=== PATIENT | female | born 1960 | race Caucasian/White ===

== ENCOUNTER 2016-06-12 14:18 | Inpatient (IN) | payer MEDICARE, OTHER ==
--- NOTE | ~2016-06-12 | CN ---
Consultation Report [facility] [address] [place]. [address] NAME: GARCIA PATRICK : 64 STATUS : ADM IN PAT#: [id number] AGE: 56 ADM/REG DATE : 06/13/16 MR#: [id number] REPORT SERV DATE: 06/19/16 DICTATED BY: LAI HILL DATE: 06/19/16 REPORT STATUS : Draft TRANSCRIBED BY: MODL DATE: 06/19/16 PSYCHIATRIC CONSULTATION DATE OF CONSULTATION: 06/19/2016 I reviewed this patient's medical record. HISTORY OF PRESENT ILLNESS: She was admitted with an exacerbation of COPD and pneumonia. At this time, I am consulted for anxiety and depression. PAST PSYCHIATRIC HISTORY: Her home medication list included Xanax 1 mg t.i.d., hydrocodone 7.5/325 q.8 hours, and Effexor XR 75 mg q.h.s. Yesterday, her Xanax dose was reduced to 0.5 mg t.i.d. She reported difficulty dealing with multiple issues in her life, including the deaths of family members and other losses. She said that many years ago, she used to use alcohol to help her cope. Now, it is Xanax and hydrocodone. She described some generalized anxiety and episodic panic attacks. SOCIAL HISTORY: In recent years, she has been living with different family members and friends. She is hoping she will be able to return to her own trailer in the near future. MENTAL STATUS: She was quite talkative. She was very defensive when questioned about addiction issues. She said she was hoping she will be able to stop smoking. She appeared to be reluctantly accepting the reduction in Xanax dosing. Her mood was anxious and somewhat angry. Her affect was appropriate. Her thinking frequently diverged to interpersonal issues, and she needed frequent refocusing to keep her on track. She was oriented to time, place, and person. DIAGNOSIS: Generalized anxiety disorder. RECOMMENDATIONS: I will increase her Effexor XR to 150 mg daily. She should try to gradually wean herself off the fixed dosing of Xanax. I will sign off. EDDIE/ROSARIO Lai Hill M.D. / [id number] CC: Adamaris Koenig M.D.
--- NOTE | ~2016-06-12 | CN ---
Consultation Report [place] [address] [facility] [place]. [address] NAME: GARCIA PATRICK : 64 STATUS : ADM IN [facility]#: [id number] AGE: 56 ADM/REG DATE : 06/13/16 MR#: [id number] REPORT SERV DATE: 06/18/16 DICTATED BY: JANELLE MOULTON DATE: 06/17/16 REPORT STATUS : Draft TRANSCRIBED BY: MODTegan DATE: 06/17/16 CONSULTATION DATE OF CONSULTATION: 06/17/[address] Tsai: Thank you for requesting my opinion regarding evaluation and management of Ms. Garcia Patrick, COPD exacerbation, chronic hypoxic hypercapnic respiratory failure. Ms. Patrick is a 56-year-old female with a significant past medical history of COPD, chronic low back pain, and anxiety, who presents with worsening shortness of breath. She states that she had symptoms approximately a week ago when she developed a productive cough, chest tightness, shortness of breath, and dyspnea on exertion. She is a patient of Dr. Justin Bhardwaj and saw her civil engineering design draftsperson on Friday. A chest x-ray was obtained. She eventually presented to the [facility] Emergency Room, and she was started on Levaquin, Brovana, Pulmicort, Spiriva, albuterol, and Dulera. She was also on Mucinex. She states that her symptoms have significantly improved, but today she took a step backwards. She describes her shortness of breath as moderate to severe, well localized to the chest, nonradiating, with no significant alleviating or exacerbating factors. She also has associated low left quadrant abdominal discomfort. REVIEW OF SYSTEMS: A detailed 14-point review of systems was completed. Pertinent positives and negatives are listed above. PAST MEDICAL HISTORY: 1. COPD. 2. Anxiety. 3. Lower back pain. PAST SURGICAL HISTORY: 1. Tubal ligation. 2. Hysterectomy. 3. Bladder tack. 4. Tonsillectomy. FAMILY HISTORY: 1. Diabetes, type 2. 2. Colon cancer. 3. Congestive heart failure. SOCIAL HISTORY: The patient actively smoke. She has 43 pack-year smoking history. She also smokes marijuana. She denies any current alcohol or illicit drug abuse. ALLERGIES: INCLUDE CEPHALEXIN, CITALOPRAM, AND THEOPHYLLINE. Consultation Report [place] [address] [place]. [address] NAME: GARCIA PATRICK : 64 STATUS : ADM IN PAT#: [id number] AGE: 56 ADM/REG DATE : 06/13/16 MR#: [id number] REPORT SERV DATE: 06/18/16 DICTATED BY: JANELLE MOULTON DATE: 06/17/16 REPORT STATUS : Draft TRANSCRIBED BY: MODL DATE: 06/17/16 PHYSICAL EXAMINATION: VITAL SIGNS: Afebrile, T current 96.7, pulse of 99, respiratory rate of 22, 4 L BiPAP, now currently on 6.5 L, saturating 91%, blood pressure 124/58. GENERAL: Morbidly obese, chronically ill-appearing female, resting comfortably off BiPAP HEENT: Normocephalic, atraumatic. PERRLA. Posterior oropharynx is clear. NECK: No JVD. No LAD. Thick neck. CARDIOVASCULAR: Regular rate and rhythm. S1 and S2 present. LUNGS: Diminished breath sounds, coarse crackles noted and end-expiratory wheezes on forced expiration. ABDOMEN: Soft, nontender, nondistended. No pain, guarding, or rebound noted. EXTREMITIES: No cyanosis, clubbing, or edema. NEUROLOGIC: 5/5 strength in upper and lower extremities. Cranial nerves II through XII intact. Gait not tested. DTRs not performed.. LABORATORY DATA: White count of 12, hemoglobin of 12 platelet count of 214. Negative procalcitonin. Chemistries demonstrate a creatinine of 0.66, pH of 7.42, PaCO2 of 50, PaO2 of 77 on 50% FiO2 and 10/5 BiPAP. Negative UA. IMAGING: Chest CT on 06/13/2016 and 06/16/2016 was personally reviewed by me, and I agree with the following interpretation, probable bilateral right greater than left pneumonia, mediastinal lymph nodes, granulomatous calcifications, and calcific atherosclerosis. ASSESSMENT AND PLAN: Garcia Bunn is a pleasant 56-year-old female with a significant past medical history of chronic hypoxic respiratory failure requiring 3 L continuous, active tobacco and marijuana use, and anxiety, who presents to [facility] with one-week history of worsening shortness of breath, dyspnea on exertion, and hypoxic hypercapnic respiratory failure. The patient has multifactorial shortness of breath including the following. 1. Acute exacerbation of COPD. 2. Active tobacco abuse and marijuana abuse. 3. Negative procalcitonin indicating unlikely bacterial pneumonia. 4. Bilateral patchy infiltrates of unclear etiology, improved compared to prior scan. 5. Normal LV function, EF of 55%, mild AV stenosis, technically difficult echo. 6. Mild mediastinal lymphadenopathy, likely reactive but will require close followup. RECOMMENDATIONS: Summary of my recommendations are as follows: 1. Continue Levaquin. 2. Continue Brovana Pulmicort, Spiriva, albuterol. 3. Discontinue Dulera. 4. Continue Mucinex. 5. DVT. 6. Smoking cessation. 7. Follow up with Dr. Bhardwaj regarding the mediastinal lymphadenopathy. The patient may Consultation Report [address] [place]. [address] NAME: GARCIA PATRICK : 64 STATUS : ADM IN PAT#: [id number] AGE: 56 ADM/REG DATE : 06/13/16 MR#: [id number] REPORT SERV DATE: 06/18/16 DICTATED BY: JANELLE MOULTON DATE: 06/17/16 REPORT STATUS : Draft TRANSCRIBED BY: ROSARIO DATE: 06/17/16 likely need a repeat scan. Thank you for allowing me to participate in Ms. Patrick's care. YOCASTA/ROSARIO Janelle Moulton M.D. / [id number] CC: Adamaris Contreras M.D.
--- NOTE | ~2016-06-12 | IDS ---
Interim Discharge Summary [facility] [address] [place]. [address] NAME: GARCIA PATRICK : 64 STATUS : ADM IN [facility]#: [id number] AGE: 56 ADM/REG DATE : 06/13/16 MR#: [id number] REPORT SERV DATE: 06/18/16 DICTATED BY: OLIVER SOMERS DATE: 06/17/16 REPORT STATUS : Draft TRANSCRIBED BY: MODL DATE: 06/17/16 ADMISSION DATE: 06/13/2016 DISCHARGE DATE: CURRENT INTERIM DIAGNOSES: List includes: 1. Bilateral pneumonia. Present on admission. 2. Acute chronic obstructive pulmonary disease exacerbation. 3. Acute on chronic hypoxic respiratory failure, chronic home O2 usage with current tobacco usage. 4. Generalized anxiety disorder. 5. Morbid obesity. 6. Chronic pain syndrome. HISTORY OF PRESENT ILLNESS: This is a 56-year-old female with a presentation of significant shortness of breath. Please see the initial H and P of Dr. Baltazar Tsai, as the patient was admitted to the Hospitalist Service for further evaluation and treatment. CONSULTANTS DURING THIS ADMISSION: Include Pulmonary Services, Dr. Lazcano. PROCEDURES AND IMAGING DURING THIS ADMISSION: Included an initial CT scan of the chest showing bilateral infiltrates, right greater than the left. A CTA of the chest showing no evidence for pulmonary embolus, but bilateral hilar adenopathy, scattered non-specific infiltrative changes. Echocardiogram that was technically difficult showed an ejection fraction of 55%, mild aortic valve stenosis, but normal RV and normal LV size and systolic function. CONTINUATION OF HOSPITAL COURSE: The patient was initially seen by Dr. Jeffrey Mcclain, where she was continued on antibiotic therapy, nebulizer therapy, oxygen therapy, and IV steroids and counseled on smoking cessation. I began seeing the patient on 06/15/2016, where she was making some very slight improvement, but still complaining of significant pain with coughing. Her procalcitonin initially on admission had been 1.18. This was re-checked and did come down to 0.05 indicating some improvement on her Levaquin course. She was given some IV Toradol for pain, but this did not seem to help her. She was finally given some p.o. Percocet and this seemed to help her pain, although it did make her more lethargic. Given her slow clinical improvement, a D-dimer was checked which did come back slightly elevated at 0.77, so a CTA of the chest was ordered as described above. An echocardiogram was ordered as described above, and she was still somewhat hypoxic particularly with exertional activities and requiring some 5 to 6 L of nasal cannula, so pulmonary was consulted to see the patient today on 06/17/2016. She did spend approximately four hours on the BiPAP, which seemed to help her oxygen better and she is feeling better this evening. She did get a dose of diuretics today, Bumex and has peed out an excellent diuresis of approximately 3 L. Hopeful to continue to wean her oxygen to her baseline of 2 to 3 L and disposition of home soon. I have counseled her at length about needing to wean her Xanax through her primary care office, and Pulmonary after seeing the patient discontinued her Dulera and is continuing her nebulizers, Brovana, Pulmicort, DuoNebs, and Spiriva. Interim Discharge Summary [address] [place]. [address] NAME: GARCIA PATRICK : 64 STATUS : ADM IN [facility]#: [id number] AGE: 56 ADM/REG DATE : 06/13/16 MR#: [id number] REPORT SERV DATE: 06/18/16 DICTATED BY: OLIVER SOMERS DATE: 06/17/16 REPORT STATUS : Draft TRANSCRIBED BY: ROSARIO DATE: 06/17/16 SAVANNAH/ROSARIO Oliver Somers NP / [id number] CC: Adamaris Contreras M.D.
--- NOTE | ~2016-06-12 | IDS ---
Interim Discharge Summary [place] [id number] [facility] [place]. [address] NAME: GARCIA PATRICK : 64 STATUS : ADM IN PAT#: [id number] AGE: 56 ADM/REG DATE : 06/13/16 MR#: [id number] REPORT SERV DATE: 06/25/16 DICTATED BY: ANN YAÑEZ DATE: 06/24/16 REPORT STATUS : Draft TRANSCRIBED BY: MODL DATE: 06/24/16 ADMISSION DATE: 06/13/2016 DISCHARGE DATE: Interim summary covers period 06/18/2016 to 06/24/2016 CURRENT DIAGNOSES: 1. Community-acquired pneumonia. 2. Acute exacerbation of chronic obstructive pulmonary disease with continued tobacco use. 3. Acute on chronic hypoxemic and hypercapnic respiratory failure. 4. Chronic pain syndrome. 5. Generalized anxiety disorder. 6. Oral candidiasis associated with antimicrobial treatment. 7. Morbid obesity. 8. Prediabetes. 9. Coronary artery disease by CT imaging. 10.Degenerative disk disease with previous epidurals and outpatient physical therapy. 11.Peripheral arterial disease by exam. 12.Hyperlipoproteinemia. 13.Opioid-induced constipation. INTERIM PROCEDURES: None. INTERIM COURSE: This is a 56-year-old white female, who was admitted by Dr. Tsai on 06/12/2016 with initial diagnosis of acute exacerbation of COPD. HOSPITAL COURSE: Her hospital course from admission through 06/17/2016 is as outlined on interim summary dictated by Blayne Uriostegui. Pulmonary consultation was obtained on 06/17/2016 and she was followed by Dr. Lazcano through 06/21/2016. There has been a slow, but steady improvement in her respiratory status. She has completed seven days of Levaquin and three additional days of vancomycin and aztreonam. She has symptomatically improved. She still has expiratory wheezes on exam, but her O2 requirement is back near her baseline at 4 L per day with O2 saturations in the low 90s. Consultation was obtained with Dr. Lai Ulrich because of anxiety and depression. Dr. Ulrich's diagnosis was generalized anxiety disorder and recommended additional dosing of Effexor with tapering and discontinuation in the future of Xanax. She has required some additional pain management this week with improved chronic pain control. She has been seen by Physical Therapy. custodial facility rehab has been recommended. Interim Discharge Summary [facility] [address] [address] NAME: GARCIA PATRICK : 64 STATUS : ADM IN [facility]#: [id number] AGE: 56 ADM/REG DATE : 06/13/16 MR#: [id number] REPORT SERV DATE: 06/25/16 DICTATED BY: ANN YAÑEZ DATE: 06/24/16 REPORT STATUS : Draft TRANSCRIBED BY: MODL DATE: 06/24/16 We are waiting for facility acceptance. She has SNF ready on her current medical therapy and nighttime BiPAP. Hospitalist care to be assumed by [place] [address] team on 06/25/2016. DD/MODL Ann Yañez M.D. / [id number] CC: Adamaris Koenig M.D.
--- NOTE | ~2016-06-12 | DS ---
Discharge Summary [address] [place]. [address] NAME: GARCIA PATRICK : 64 STATUS : DIS IN PAT#: [id number] AGE: 56 ADM/REG DATE : 06/13/16 MR#: [id number] REPORT SERV DATE: 06/26/16 DICTATED BY: JOSE ELISE DATE: 06/25/16 REPORT STATUS : Draft TRANSCRIBED BY: MODL DATE: 06/25/16 ADMISSION DATE: 06/13/2016 DISCHARGE DATE: 06/25/2016 DISCHARGE DIAGNOSES: 1. Community-acquired pneumonia. 2. Acute exacerbation of chronic obstructive pulmonary disease with continued smoking. 3. Acute on chronic hypoxemic and hypercapnic respiratory failure. 4. Chronic pain. 5. Generalized anxiety disorder. 6. Oral candidiasis associated with microbial treatment. 7. Morbid obesity. 8. Prediabetes. 9. Coronary artery disease. 10.Degenerative disk disease. 11.Peripheral artery disease. 12.Hyperlipidemia. 13.Opiate-induced constipation. CONSULTATIONS: 1. Pulmonology. 2. Psychiatry. PROCEDURES: None. HOSPITAL COURSE: This is actually an addendum to interim discharge summary that was dictated by Dr. Yañez just yesterday. I assumed care of this patient on this day of discharge. The patient was held in the hospital for a SNF replacement. Unfortunately, patient was not able to get into the SNF of choice, and the patient actually decided to refuse SNF and decided to go home with home health. The patient otherwise has been medically ready for discharge. DISPOSITION: Home with home health. FOLLOWUP: Please follow up with PCP in the next one to two weeks. A total of 25 minutes spent in coordinating this patient's discharge today. [facility]/ROSARIO Jose Elise MD / [id number] Discharge Summary [place] [address] [place]. [address] NAME: GARCIA PATRICK : 64 STATUS : DIS IN PAT#: [id number] AGE: 56 ADM/REG DATE : 06/13/16 MR#: [id number] REPORT SERV DATE: 06/26/16 DICTATED BY: JOSE ELISE DATE: 06/25/16 REPORT STATUS : Draft TRANSCRIBED BY: ROSARIO DATE: 06/25/16 CC: Adamaris Chung M.D.
--- NOTE | ~2016-06-12 | DS ---
Discharge Summary [facility] [address] [place]. [address] NAME: GARCIA PATRICK : 64 STATUS : ADM IN PAT#: [id number] AGE: 56 ADM/REG DATE : 06/12/16 MR#: [id number] REPORT SERV DATE: 06/13/16 DICTATED BY: SHERIN COLMENARES DATE: 06/12/16 REPORT STATUS : Draft TRANSCRIBED BY: MODL DATE: 06/12/16 ADMISSION DATE: 06/12/2016 DISCHARGE DATE: CHIEF COMPLAINT: Shortness of breath. HISTORY OF PRESENT ILLNESS: Ms Patrick is a 56-year-old female with a history of COPD, chronic lower back pain and anxiety, who presented to the hospital with a complaint of shortness of breath. History obtained from the patient; however, the patient was very tangential during interview. The patient reports that her symptoms started approximately on Friday morning. She states that she was her normal self as at Friday evening prior to going to bed. However, she states that she awoke Friday morning, she was very short of breath and very lethargic. She was unable to stay awake all through Friday as she slept the whole day. She states that on Friday she upon awakening she felt a bit better; however, her shortness of breath had worsened, at which time she called her meat grader. The patient states that she was unable to be seen by her meat grader on Friday, an appointment was scheduled for her on Friday. She states that she kept the appointment on Friday. Upon presentation to her meat grader, chest x-ray was obtained. The patient states that she was told she had bilateral pneumonia and that her oxygen saturation was low. She was also observed to be somewhat lethargic prompting the physician to call an ambulance, and the patient was transferred to [facility] Emergency Room. Upon presentation to the emergency room, preliminary workup noted low oxygen saturation. Given her history of COPD, the patient was diagnosed with COPD exacerbation and Hospital Service was called to admit the patient. At the time of my evaluation, the patient corroborated the above story. She denied any sick contacts. She states that other than the shortness of breath. She did not have any other complaints. She also reported having a midsternal chest pain which she rate about 7/10, and also stated that her symptoms radiated to the back with no aggravating or relieving factors. She denies however any fevers, any chills, any nausea or vomiting, any diarrhea. REVIEW OF SYSTEMS: A 14-point review of system was performed. All systems were negative except as noted in the HPI. PAST MEDICAL HISTORY: 1. COPD. 2. Anxiety. 3. Lower back pain. PAST SURGICAL HISTORY: 1. Tubal ligation. 2. Hysterectomy. 3. Bladder tuck. 4. Tonsillectomy. FAMILY HISTORY: 1. Diabetes type 2. Discharge Summary [address] [place]. [address] NAME: GARCIA PATRICK : 64 STATUS : ADM IN PAT#: [id number] AGE: 56 ADM/REG DATE : 06/12/16 MR#: [id number] REPORT SERV DATE: 06/13/16 DICTATED BY: SHERIN COLMENARES DATE: 06/12/16 REPORT STATUS : Draft TRANSCRIBED BY: MODTegan DATE: 06/12/16 2. Colon cancer in mom, diagnosed at age greater than 60. 3. Congestive heart failure in mother. The mother is currently . SOCIAL HISTORY: The patient reports a 43-pack year smoking history. She reports positive use of marijuana also; however, denied alcohol use. ALLERGIES: THE PATIENT STATES THAT SHE IS ALLERGIC TO CEPHALEXIN, CITALOPRAM, AND THEOPHYLLINE. PHYSICAL EXAMINATION: VITAL SIGNS: Blood pressure 92/53 with a pulse of 89, respirations 18, O2 saturation 96% on 4 L nasal cannula, and temperature 36.61 Celsius, 97.9 degrees Fahrenheit. GENERAL: The patient was lying in bed, in no acute distress. Morbidly obese. Wearing nasal cannula. HEENT: Normocephalic and atraumatic. Extraocular motors intact. Pupils are round and reactive to light and accommodation. Anicteric sclerae. No conjunctival pallor noted. NECK: Trachea midline and symmetric. No JVD present. No thyromegaly noted. No lymphadenopathy present. CHEST: No scars noted. Nontender to palpation. CARDIOVASCULAR: Regular rate and rhythm. S1, S2. No murmurs, rubs, or gallops. LUNGS: Positive wheezes and rhonchi noted globally. The patient noted to have equal chest expansion with normal respiratory effort. ABDOMEN: Positive bowel sounds. Obese, nontender, and nondistended. No masses palpated. EXTREMITIES: No cyanosis. No clubbing. No edema. NEURO: Alert and oriented x3. No focal deficits appreciated. LABORATORY DATA: WBC 10.0, hemoglobin 12.9, hematocrit 39.8, and platelet 152. Chemistry: Sodium 137, potassium 5.0, chloride 101, bicarb 27, BUN 15, creatinine 0.48, and glucose 97. Procalcitonin elevated at 1.18. Chest x-ray. Impression: No acute cardiopulmonary abnormality noted; however, the lungs were clear except for granulomatous calcifications. ASSESSMENT AND PLAN: 1. Chronic obstructive pulmonary disease exacerbation. Plan: We will place the patient on Solu-Medrol 80 mg IV q.[address] the patient on DuoNeb, and supplemental oxygen. Given her elevated procalcitonin we will start the patient on Levaquin 750 mg IV q.24 hours. We will reassess the patient again in the morning. 2. Lower back pain, chronic. We will continue the patient's home medications. 3. Anxiety. We will continue the patient's home medications. 4. Code status. The patient will remain full code at this time. 5. Deep venous thrombosis prophylaxis will be with Lovenox. Discharge Summary [address] [address] NAME: GARCIA PATRICK : 64 STATUS : ADM IN [facility]#: [id number] AGE: 56 ADM/REG DATE : 06/12/16 MR#: [id number] REPORT SERV DATE: 06/13/16 DICTATED BY: SHERIN COLMENARES DATE: 06/12/16 REPORT STATUS : Draft TRANSCRIBED BY: ROSARIO DATE: 06/12/16 MARLENE/ROSARIO Sherin Colmenares MD / [id number] CC: Sherin Colmenares MD
[2016-06-12 14:21] LABS: BE (BASE EXCESS) 2.1 MEQ/L (0 +/- 2.5); INSTRUMENT SERIAL # 8087; PCO2 (CO2 TENSION) 45 MMHG (35-45); PO2 (O2 TENSION) 59 MMHG (79-93)
[2016-06-12 14:22] LABS: ALLENS TEST Pos; CARBOXYHEMOGLOBIN 4.8 % (0-3); DEVICE NC; HCO3 (ACTUAL BICARBONATE) 27.3 MEQ/L (23-27); HEMOBLOGIN CONTENT 12.8 G/DL (12-16); METHEMOGLOBIN 0.1 % (0-3); O2 CONTENT 15.5 VOL% (18-24); SAMPLE Arterial
[2016-06-12 14:30] LABS: BASOPHILS 0.2 %; BASOPHILS ABSOLUTE 0.02 10/3/uL (0.0-0.16); EOSINOPHILS 2.5 %; EOSINOPHILS ABSOLUTE 0.25 10/3/uL (0.0-0.53); ER CBC TAT 0 Hrs 02 Mins; HEMATOCRIT 39.8 % (36.0-48.0); HEMOGLOBIN 12.9 g/dL (12.0-16.0); IMMATURE GRANULOCYTES 0.3 %; IMMATURE GRANULOCYTES ABSOLUTE 0.03 10/3/uL (0.0-0.11); LYMPHOCYTES 25.7 %; LYMPHOCYTES ABSOLUTE 2.58 10/3/uL (0.67-4.30); MEAN CORPUS HGB CONC 32.4 g/dL (32.0-36.0); MEAN CORPUSCULAR HEMOGLOB 31.7 pg (26.0-34.0); MEAN CORPUSCULAR VOLUME 97.8 fL (80-100); MONOCYTES 7.2 %; MONOCYTES ABSOLUTE 0.72 10/3/uL (0.21-1.20); NEUTROPHILS 64.1 %; NEUTROPHILS ABSOLUTE 6.44 10/3/uL (2.02-8.40); PLATELET COUNT 159 10/3/uL (150-400); RBC DISTRIBUTION WIDTH 14.5 % (12.0-16.0); RED CELL COUNT 4.07 10/6/uL (4.0-5.6)
[2016-06-12 14:31] LABS: MANUAL DIFF NO %
[2016-06-12 14:39] LABS: PARTIAL THROMBO TIME 28.6 SEC (22.5-37.2); PROTIME (NOT ORD) 12.8 SEC (12.0-14.5)
[2016-06-12 14:47] LABS: BUN (BLOOD UREA NITROGEN) 15 MG/DL (6-23); CALCIUM, SERUM 8.8 MG/DL (8.5-10.4); CHEST PAIN PROFILE TAT 0 Hrs 19 Mins; CHLORIDE, SERUM 101 MMOL/L (96-112); CO2 (CARBON DIOXIDE) 27 MMOL/L (24-34); CREATININE 0.48 MG/DL (0.55-1.02); GFR AFRICAN AMERICAN 129 ML/MIN (>=60); GFR NON AFRICAN AMERICAN 111 ML/MIN (>=60); GLUCOSE, SERUM 97 MG/DL (60-99); LACTATE 0.6 MMOL/L (0.3-2.4); SODIUM, SERUM 137 MMOL/L (135-148); TROPONIN I <0.02 NG/ML (<0.05)
[2016-06-12] MEDS ORDERED: VENTOLIN HFA INH (16:16)
[2016-06-12] MEDS ORDERED: SPIRIVA RESPIMAT INH (16:17)
[2016-06-12] MEDS ORDERED: FLONASE NAS (16:17)
[2016-06-12] MEDS ORDERED: BREO ELLIPTA INH (16:17)
[2016-06-12] MEDS ORDERED: ATRONASAL6 NAS (16:19)
[2016-06-12] MEDS ORDERED: CLARIT10 PO (16:20)
[2016-06-12] MEDS ORDERED: SINGULAIR1 PO (16:20)
[2016-06-12] MEDS ORDERED: EFFEXXR75 PO (16:21)
[2016-06-12] MEDS ORDERED: MAXALT10 MG PO (16:22)
[2016-06-12] MEDS ORDERED: L20 PO (16:22)
[2016-06-12] MEDS ORDERED: IMITREX100 MG PO (16:22)
[2016-06-12] MEDS ORDERED: XANAX1 MG PO (16:23)
[2016-06-12] MEDS ORDERED: NORCO1 TA2 PO (16:24)
[2016-06-12] MEDS ORDERED: TUMS E-X750 M2 PO (16:25)
[2016-06-12] MEDS ORDERED: ADVIL PO (16:26)
[2016-06-12] MEDS ORDERED: DUONEB INH (16:27)
[2016-06-12] MEDS ORDERED: PROMETHAZINE DM SYRP PO (16:29)
[2016-06-12] MEDS ORDERED: OCEAN NAS (16:31)
[2016-06-13 04:36] LABS: BASOPHILS 0 %; EOSINOPHILS 0 %; HEMATOCRIT 37.6 % (36.0-48.0); HEMOGLOBIN 12.3 g/dL (12.0-16.0); IMMATURE GRANULOCYTES 0.2 %; IMMATURE GRANULOCYTES ABSOLUTE 0.01 10/3/uL (0.0-0.11); LYMPHOCYTES 11.3 %; LYMPHOCYTES ABSOLUTE 0.74 10/3/uL (0.67-4.30); MEAN CORPUS HGB CONC 32.7 g/dL (32.0-36.0); MEAN CORPUSCULAR HEMOGLOB 31.9 pg (26.0-34.0); MEAN CORPUSCULAR VOLUME 97.7 fL (80-100); MEAN PLATELET VOLUME 9.3 fL (9.2-13.0); MONOCYTES 1.4 %; MONOCYTES ABSOLUTE 0.09 10/3/uL (0.21-1.20); NEUTROPHILS 87.1 %; NEUTROPHILS ABSOLUTE 5.73 10/3/uL (2.02-8.40); PLATELET COUNT 176 10/3/uL (150-400); RBC DISTRIBUTION WIDTH 14.3 % (12.0-16.0); RED CELL COUNT 3.85 10/6/uL (4.0-5.6); WHITE BLOOD CELLS 6.6 10/3/uL (4.5-10.5)
[2016-06-13 04:39] LABS: MANUAL DIFF NO %
[2016-06-13 04:51] LABS: A/G RATIO 0.7 (0.7-1.9); ALBUMIN 2.9 G/DL (3.5-5.0); ALKALINE PHOSPHATASE 93 U/L (45-117); BUN (BLOOD UREA NITROGEN) 15 MG/DL (6-23); CALCIUM, SERUM 8.6 MG/DL (8.5-10.4); CHLORIDE, SERUM 103 MMOL/L (96-112); CHOL/HDL RATIO(NOT ORDER) 6.9 (0-5); CHOLESTEROL 248 MG/DL (< 200); CO2 (CARBON DIOXIDE) 30 MMOL/L (24-34); CREATININE 0.58 MG/DL (0.55-1.02); GFR AFRICAN AMERICAN 121 ML/MIN (>=60); GFR NON AFRICAN AMERICAN 104 ML/MIN (>=60); GLOBULIN 4.1 G/DL (2.5-4.1); HDL CHOLESTEROL 36 MG/DL (> 49); LDL CHOLESTEROL 181 MG/DL (< 130); NON-HDL CHOLESTEROL 212 MG/DL (< 160); SGOT(AST) 14 U/L (5-40); SGPT(ALT) 18 U/L (5-65); SODIUM, SERUM 140 MMOL/L (135-148); TOTAL BILIRUBIN 0.8 MG/DL (0-1.2); TRIGLYCERIDE 156 MG/DL (< 150)
[2016-06-13 04:52] LABS: GLUCOSE, SERUM 160 MG/DL (60-99)
[2016-06-14 11:32] LABS: ASCORBIC ACID (UR NOT ORDER) NEG (NEG); BILIRUBIN, URINE NEGATIVE (NEG); KETONE, URINE NEGATIVE (NEG); LEUKOCYTE ESTERASE(NOT OR NEG (NEG); WBC (NOT ORDERED) (RFLEX) < 1 (0-5)
[2016-06-14 12:46] LABS: INFLUENZA A SCREEN NEGATIVE (NEGATIVE); INFLUENZA B SCREEN NEGATIVE (NEGATIVE)
[2016-06-16 12:02] LABS: BASOPHILS 0.1 %; BASOPHILS ABSOLUTE 0.01 10/3/uL (0.0-0.16); EOSINOPHILS 0 %; HEMATOCRIT 39.1 % (36.0-48.0); HEMOGLOBIN 12.4 g/dL (12.0-16.0); IMMATURE GRANULOCYTES 0.8 %; LYMPHOCYTES 8.7 %; LYMPHOCYTES ABSOLUTE 1.08 10/3/uL (0.67-4.30); MEAN CORPUS HGB CONC 31.7 g/dL (32.0-36.0); MEAN CORPUSCULAR HEMOGLOB 31.4 pg (26.0-34.0); MEAN PLATELET VOLUME 8.7 fL (9.2-13.0); MONOCYTES 8.9 %; MONOCYTES ABSOLUTE 1.11 10/3/uL (0.21-1.20); NEUTROPHILS 81.5 %; NEUTROPHILS ABSOLUTE 10.11 10/3/uL (2.02-8.40); PLATELET COUNT 214 10/3/uL (150-400); RBC DISTRIBUTION WIDTH 14.1 % (12.0-16.0); RED CELL COUNT 3.95 10/6/uL (4.0-5.6)
[2016-06-16 12:03] LABS: MANUAL DIFF NO %; WHITE BLOOD CELLS 12.4 10/3/uL (4.5-10.5)
[2016-06-16 12:14] LABS: CALCIUM, SERUM 8.5 MG/DL (8.5-10.4); CHLORIDE, SERUM 101 MMOL/L (96-112); CREATININE 0.66 MG/DL (0.55-1.02); GFR AFRICAN AMERICAN 116 ML/MIN (>=60); GFR NON AFRICAN AMERICAN 100 ML/MIN (>=60); SODIUM, SERUM 142 MMOL/L (135-148)
[2016-06-16 12:15] LABS: BUN (BLOOD UREA NITROGEN) 19 MG/DL (6-23); CO2 (CARBON DIOXIDE) 35 MMOL/L (24-34); GLUCOSE, SERUM 117 MG/DL (60-99)
[2016-06-17 10:59] LABS: CARBOXYHEMOGLOBIN 0.3 % (0-3); DEVICE NC; HEMOBLOGIN CONTENT 12.7 G/DL (12-16); INSTRUMENT SERIAL # 35151; METHEMOGLOBIN 0.5 % (0-3); O2 CONTENT 15.1 VOL% (18-24); PCO2 (CO2 TENSION) 50 MMHG (35-45); PO2 (O2 TENSION) 51 MMHG (79-93); SAMPLE Arterial; pH 7.38 (7.37-7.43)
[2016-06-17 17:25] LABS: BE (BASE EXCESS) 5.8 MEQ/L (0 +/- 2.5); CARBOXYHEMOGLOBIN 0.1 % (0-3); HCO3 (ACTUAL BICARBONATE) 31.6 MEQ/L (23-27); INSTRUMENT SERIAL # 35151; METHEMOGLOBIN 0.7 % (0-3); O2 CONTENT 18.6 VOL% (18-24); PCO2 (CO2 TENSION) 50 MMHG (35-45); PO2 (O2 TENSION) 77 MMHG (79-93); SAMPLE Arterial; pH 7.42 (7.37-7.43)
[2016-06-18 05:43] LABS: BASOPHILS 0.1 %; BASOPHILS ABSOLUTE 0.02 10/3/uL (0.0-0.16); EOSINOPHILS 0 %; HEMATOCRIT 42.3 % (36.0-48.0); HEMOGLOBIN 13.7 g/dL (12.0-16.0); IMMATURE GRANULOCYTES 0.7 %; LYMPHOCYTES 11.3 %; LYMPHOCYTES ABSOLUTE 1.61 10/3/uL (0.67-4.30); MEAN CORPUS HGB CONC 32.4 g/dL (32.0-36.0); MEAN CORPUSCULAR HEMOGLOB 31.8 pg (26.0-34.0); MEAN CORPUSCULAR VOLUME 98.1 fL (80-100); MEAN PLATELET VOLUME 9.1 fL (9.2-13.0); MONOCYTES 9.8 %; NEUTROPHILS 78.1 %; NEUTROPHILS ABSOLUTE 11.12 10/3/uL (2.02-8.40); PLATELET COUNT 205 10/3/uL (150-400); RBC DISTRIBUTION WIDTH 14.6 % (12.0-16.0); RED CELL COUNT 4.31 10/6/uL (4.0-5.6); WHITE BLOOD CELLS 14.3 10/3/uL (4.5-10.5)
[2016-06-18 05:44] LABS: MANUAL DIFF NO %
[2016-06-18 05:59] LABS: CALCIUM, SERUM 8.5 MG/DL (8.5-10.4); CHLORIDE, SERUM 97 MMOL/L (96-112); CO2 (CARBON DIOXIDE) 33 MMOL/L (24-34); CREATININE 0.64 MG/DL (0.55-1.02); GFR AFRICAN AMERICAN 117 ML/MIN (>=60); GFR NON AFRICAN AMERICAN 101 ML/MIN (>=60); GLUCOSE, SERUM 102 MG/DL (60-99); SODIUM, SERUM 136 MMOL/L (135-148)
[2016-06-18 06:00] LABS: BUN (BLOOD UREA NITROGEN) 13 MG/DL (6-23)
[2016-06-18 10:30] LABS: PROCALCITONIN 0.24 ng/mL (<0.5)
[2016-06-19 04:26] LABS: BASOPHILS 0.1 %; BASOPHILS ABSOLUTE 0.01 10/3/uL (0.0-0.16); EOSINOPHILS 0.1 %; EOSINOPHILS ABSOLUTE 0.02 10/3/uL (0.0-0.53); HEMATOCRIT 38.7 % (36.0-48.0); HEMOGLOBIN 12.3 g/dL (12.0-16.0); IMMATURE GRANULOCYTES 0.5 %; LYMPHOCYTES 10.9 %; LYMPHOCYTES ABSOLUTE 2.04 10/3/uL (0.67-4.30); MEAN CORPUS HGB CONC 31.8 g/dL (32.0-36.0); MEAN CORPUSCULAR HEMOGLOB 31.6 pg (26.0-34.0); MEAN CORPUSCULAR VOLUME 99.5 fL (80-100); MEAN PLATELET VOLUME 9.2 fL (9.2-13.0); MONOCYTES 6.8 %; MONOCYTES ABSOLUTE 1.28 10/3/uL (0.21-1.20); NEUTROPHILS 81.6 %; NEUTROPHILS ABSOLUTE 15.27 10/3/uL (2.02-8.40); PLATELET COUNT 192 10/3/uL (150-400); RBC DISTRIBUTION WIDTH 14.8 % (12.0-16.0); RED CELL COUNT 3.89 10/6/uL (4.0-5.6); WHITE BLOOD CELLS 18.7 10/3/uL (4.5-10.5)
[2016-06-19 04:37] LABS: BUN (BLOOD UREA NITROGEN) 15 MG/DL (6-23); CHLORIDE, SERUM 102 MMOL/L (96-112); CO2 (CARBON DIOXIDE) 33 MMOL/L (24-34); GFR AFRICAN AMERICAN 127 ML/MIN (>=60); GFR NON AFRICAN AMERICAN 110 ML/MIN (>=60); GLUCOSE, SERUM 109 MG/DL (60-99); POTASSIUM, SERUM 3.8 MMOL/L (3.5-5.3); SODIUM, SERUM 141 MMOL/L (135-148)
[2016-06-19 04:40] LABS: MANUAL DIFF NO %
[2016-06-20 06:08] LABS: BASOPHILS 0.2 %; BASOPHILS ABSOLUTE 0.02 10/3/uL (0.0-0.16); EOSINOPHILS 0.2 %; EOSINOPHILS ABSOLUTE 0.02 10/3/uL (0.0-0.53); HEMOGLOBIN 11.5 g/dL (12.0-16.0); IMMATURE GRANULOCYTES 0.9 %; IMMATURE GRANULOCYTES ABSOLUTE 0.11 10/3/uL (0.0-0.11); LYMPHOCYTES 17.1 %; LYMPHOCYTES ABSOLUTE 2.14 10/3/uL (0.67-4.30); MEAN CORPUS HGB CONC 31.1 g/dL (32.0-36.0); MEAN CORPUSCULAR HEMOGLOB 31.2 pg (26.0-34.0); MEAN CORPUSCULAR VOLUME 100.3 fL (80-100); MONOCYTES 7.3 %; MONOCYTES ABSOLUTE 0.91 10/3/uL (0.21-1.20); NEUTROPHILS 74.3 %; NEUTROPHILS ABSOLUTE 9.29 10/3/uL (2.02-8.40); PLATELET COUNT 189 10/3/uL (150-400); RBC DISTRIBUTION WIDTH 14.6 % (12.0-16.0); RED CELL COUNT 3.69 10/6/uL (4.0-5.6); WHITE BLOOD CELLS 12.5 10/3/uL (4.5-10.5)
[2016-06-20 06:17] LABS: BUN (BLOOD UREA NITROGEN) 12 MG/DL (6-23); CALCIUM, SERUM 8.7 MG/DL (8.5-10.4); CHLORIDE, SERUM 100 MMOL/L (96-112); CO2 (CARBON DIOXIDE) 31 MMOL/L (24-34); CREATININE 0.41 MG/DL (0.55-1.02); GFR AFRICAN AMERICAN 136 ML/MIN (>=60); GFR NON AFRICAN AMERICAN 117 ML/MIN (>=60); GLUCOSE, SERUM 92 MG/DL (60-99); SODIUM, SERUM 139 MMOL/L (135-148)
[2016-06-20 06:18] LABS: MANUAL DIFF NO %
[2016-06-20 07:08] LABS: PROCALCITONIN 0.51 ng/mL (<0.5)
[2016-06-21 07:06] LABS: BASOPHILS 0.5 %; BASOPHILS ABSOLUTE 0.04 10/3/uL (0.0-0.16); EOSINOPHILS 0.3 %; EOSINOPHILS ABSOLUTE 0.02 10/3/uL (0.0-0.53); IMMATURE GRANULOCYTES 1.3 %; LYMPHOCYTES 24.7 %; LYMPHOCYTES ABSOLUTE 1.97 10/3/uL (0.67-4.30); MEAN CORPUS HGB CONC 30.6 g/dL (32.0-36.0); MEAN CORPUSCULAR HEMOGLOB 31.3 pg (26.0-34.0); MEAN CORPUSCULAR VOLUME 102.4 fL (80-100); MONOCYTES 9.7 %; MONOCYTES ABSOLUTE 0.77 10/3/uL (0.21-1.20); NEUTROPHILS 63.5 %; NEUTROPHILS ABSOLUTE 5.07 10/3/uL (2.02-8.40); RBC DISTRIBUTION WIDTH 14.4 % (12.0-16.0); RED CELL COUNT 4.15 10/6/uL (4.0-5.6)
[2016-06-21 07:11] LABS: HEMATOCRIT 42.5 % (36.0-48.0); MANUAL DIFF NO %; PLATELET COUNT 249 10/3/uL (150-400)
[2016-06-21 07:18] LABS: BUN (BLOOD UREA NITROGEN) 14 MG/DL (6-23); CALCIUM, SERUM 8.9 MG/DL (8.5-10.4); CHLORIDE, SERUM 98 MMOL/L (96-112); CO2 (CARBON DIOXIDE) 32 MMOL/L (24-34); CREATININE 0.54 MG/DL (0.55-1.02); GFR AFRICAN AMERICAN 124 ML/MIN (>=60); GFR NON AFRICAN AMERICAN 107 ML/MIN (>=60); GLUCOSE, SERUM 76 MG/DL (60-99); POTASSIUM, SERUM 4.2 MMOL/L (3.5-5.3); SODIUM, SERUM 141 MMOL/L (135-148)
[2016-06-21 08:18] LABS: PROCALCITONIN 0.18 ng/mL (<0.5)
[2016-06-22 06:17] LABS: BUN (BLOOD UREA NITROGEN) 13 MG/DL (6-23); CALCIUM, SERUM 8.8 MG/DL (8.5-10.4); CHLORIDE, SERUM 100 MMOL/L (96-112); CO2 (CARBON DIOXIDE) 34 MMOL/L (24-34); CREATININE 0.47 MG/DL (0.55-1.02); GFR AFRICAN AMERICAN 130 ML/MIN (>=60); GFR NON AFRICAN AMERICAN 112 ML/MIN (>=60); GLUCOSE, SERUM 88 MG/DL (60-99); POTASSIUM, SERUM 4.3 MMOL/L (3.5-5.3); SODIUM, SERUM 142 MMOL/L (135-148)
[2016-06-24 06:42] LABS: HEMATOCRIT 38.7 % (36.0-48.0); MEAN PLATELET VOLUME 8.3 fL (9.2-13.0); PLATELET COUNT 196 10/3/uL (150-400); RBC DISTRIBUTION WIDTH 14.8 % (12.0-16.0); RED CELL COUNT 3.87 10/6/uL (4.0-5.6); WHITE BLOOD CELLS 10.2 10/3/uL (4.5-10.5)
[2016-06-24 06:45] LABS: MANUAL DIFF YES %
[2016-06-24 06:57] LABS: A/G RATIO 0.7 (0.7-1.9); ALBUMIN 2.5 G/DL (3.5-5.0); ALKALINE PHOSPHATASE 64 U/L (45-117); BUN (BLOOD UREA NITROGEN) 10 MG/DL (6-23); CALCIUM, SERUM 8.6 MG/DL (8.5-10.4); CHLORIDE, SERUM 100 MMOL/L (96-112); CO2 (CARBON DIOXIDE) 37 MMOL/L (24-34); CREATININE 0.51 MG/DL (0.55-1.02); GFR AFRICAN AMERICAN 126 ML/MIN (>=60); GFR NON AFRICAN AMERICAN 109 ML/MIN (>=60); GLOBULIN 3.4 G/DL (2.5-4.1); GLUCOSE, SERUM 86 MG/DL (60-99); SGOT(AST) 34 U/L (5-40); SGPT(ALT) 55 U/L (5-65); SODIUM, SERUM 143 MMOL/L (135-148); TOTAL BILIRUBIN 0.2 MG/DL (0-1.2); TOTAL PROTEIN 5.9 G/DL (6.0-8.5)
[2016-06-24 07:52] LABS: BAND NEUTROPHILS 1 %; BASOPHILS 2 %; EOSINOPHILS 2 %; LYMPHOCYTES 34 %; LYMPHOCYTES ABSOLUTE (CALC) 3.47 10/3/uL (0.67-4.30); MONOCYTES 3 %; MONOCYTES ABSOLUTE (CALC) 0.31 10/3/uL (0.21-1.20); NEUTROPHILS ABSOLUTE (CALC) 6.02 10/3/uL (2.02-8.40); SEGMENTED NEUTROPHIL (0) 58 %; TOTAL NUCLEATED CELLS 100
[2016-06-24 07:53] LABS: MACROCYTES 1+ (5-10/OIF) (0-5/OIF); PLATELET ESTIMATE ADQ (ADEQUATE)
[2016-06-25] MEDS ORDERED: EFFEXOR XR150 MG PO (15:00)
[2016-06-25] MEDS ORDERED: X5 PO (15:03)
== END 2016-06-25 16:22 | disposition home health service (06) | DRG 189 ==
LOC: ER 14:18 → CDU1 17:20 → 6NO 06-14 22:23
PROVIDERS: Hospitalist; Internal Medicine; Nurse Practitioner; Nurse Practitioner Family
DX: J96.22 Acute and chronic respiratory failure with hypercapnia (principal); J18.9 Pneumonia, unspecified organism; B37.0 Candidal stomatitis; J44.1 Chronic obstructive pulmonary disease with (acute) exacerbation; Z68.41 Body mass index [BMI] 40.0-44.9, adult; Z99.81 Dependence on supplemental oxygen; E66.01 Morbid (severe) obesity due to excess calories; F12.90 Cannabis use, unspecified, uncomplicated; J96.21 Acute and chronic respiratory failure with hypoxia; F17.210 Nicotine dependence, cigarettes, uncomplicated; F41.1 Generalized anxiety disorder; G89.4 Chronic pain syndrome; M54.5 Low back pain; Z90.710 Acquired absence of both cervix and uterus; Z83.3 Family history of diabetes mellitus
CPT/HCPCS: 36600; 71010; 71020; 71250; 71275; 80048; 80053; 80061; 80202; 81001; 82805; 83036; 83605; 83735; 83880; 84145; 84484; 85025; 85379; 85610; 85730; 86140; 87449; 87804; 93005; 93306; 93970; 94640; 94660; 97116-GP; 97162-GP; 97530-GP; 99285; A9270-GY; G8978-CK-GP; G8979-CJ-GP; J1885; J1956; J2270; J2930; J3370; Q9967